=== PATIENT | female | born 1960 | race Caucasian/White ===

== ENCOUNTER 2018-07-09 11:08 | Emergency (ER) | payer BC ==
--- NOTE | 2018-07-09 12:23 | UC ---
Knee Pain HPI - HPI Summary HPI Summary: 58 yo female presents with LEFT knee pain. She tells me that about 7 months ago she had a fx of her right foot and was in a boot for about 3-4 months. She noticed she was using her left leg more during this time and had some gradually increasing pain in her left knee. Over the last 2-3 days she has been doing a lot of walking on uneven surfaces and felt her left knee "give out" yesterday. Since that time has had pain and instability to the left knee. She is wearing a knee brace and using walking sticks which help. Denies fall, numbness, or tingling. - History of Current Complaint Chief Complaint: UCLowerExtremity Stated Complaint: KNEE PAIN Time Seen by Provider: 07/09/18 12:23 Hx Obtained From: Patient Onset/Duration: Gradual Onset Severity Initially: Moderate Severity Currently: Moderate Pain Intensity: 8 Pain Scale Used: 0-10 Numeric - Allergies/Home Medications Allergies/Adverse Reactions: Allergies Allergy/AdvReac Type Severity Reaction Status Date / Time codeine Allergy Rash Verified 07/09/18 12:20 diphenhydramine Allergy excessive Verified 07/09/18 12:19 [From Benadryl] fatique Home Medications: Home Medications Vit D3/Folic Acid/B2/B6/B12 1 tab PO DAILY 07/09/18 [History Confirmed 07/09/18] PMH/Surg Hx/FS Hx/Imm Hx - Additional Past Medical History Additional PMH: None - Surgical History Surgical History: Yes Surgery Procedure, Year, and Place: ca,hyster,tonsils - Family History Known Family History: Positive: Hypertension - Social History Occupation: Employed Full-time Lives: With Family Alcohol Use: Occasionally Substance Use Type: None Smoking Status (MU): Never Smoked Tobacco Review of Systems All Other Systems Reviewed And Are Negative: Yes Constitutional: Positive: Negative Skin: Positive: Negative Respiratory: Positive: Negative Cardiovascular: Positive: Negative Gastrointestinal: Positive: Negative Neurovascular: Positive: Negative Musculoskeletal: Positive: Other: - LEFT KNEE PAIN Neurological: Positive: Negative Psychological: Positive: Negative Physical Exam - Summary Physical Exam Summary: GENERAL: NAD. WDWN. No pain distress. SKIN: No rashes, sores, lesions, or open wounds. CHEST: No accessory muscle use. Breathing comfortably and in no distress. CV: . Pulses intact popliteal, PT, and DP. Cap refill <2seconds MSK: LEFT KNEE: FROM. Strength 5/5. No edema or obvious bony deformities. POSITIVE temo. No patella apprehension. Negative Juliette, A/P drawer, and varus/valgus stress. NEURO: Alert. Sensations intact and symmetric B/L LEs PSYCH: Age appropriate behavior. Triage Information Reviewed: Yes Vital Signs: Initial Vital Signs Temp 98 F 07/09/18 12:16 Pulse 58 07/09/18 12:16 Resp 16 07/09/18 12:16 BP 175/86 07/09/18 12:16 Pulse Ox 100 07/09/18 12:16 Vital Signs Reviewed: Yes Knee Pain Course/Dx - Course Course Of Treatment: XR: IMPRESSION: No fracture of the left knee is noted. No joint effusion is noted. Suspect overuse pain vs meniscus injury. Educated pt. Advised to continue using knee brace and using walking sticks for comfort. She is from [place] and is returning there in a few days - advised to f/u with PT and Orthopedics when she returns home. - Differential Dx/Diagnosis Provider Diagnosis: Left knee pain Discharge - Sign-Out/Discharge Documenting (check all that apply): Patient Departure All imaging exams completed and their final reports reviewed: Yes - Discharge Plan Condition: Stable Disposition: HOME Patient Education Materials: Knee Pain (ED), Meniscus Tear (ED) Referrals: No Primary Care Phys,NOPCP [Primary Care Provider] - Additional Instructions: If you develop a fever, shortness of breath, chest pain, new or worsening symptoms - please call your PCP or go to the ED immediately. Your blood pressure was high at todays visit. Please see your primary provider within 4 weeks for recheck and re-evaluation. Your X-Ray was normal today 1) Rest, Ice, and elevate your knee 2) Use the walking sticks or cane as needed for comfort 3) I recommend that you see an Orthopedic doctor when you return to [place] for further evaluation of your knee. - Billing Disposition and Condition Condition: STABLE Disposition: Home
== END 2018-07-09 13:45 | disposition home or self-care (01) ==
LOC: UCEAST 11:08
DX: M25.562 Pain in left knee (principal); Z88.5 Allergy status to narcotic agent; Z88.8 Allergy status to other drugs, medicaments and biological substances
CPT/HCPCS: 99201; G0463